=== PATIENT | female | born 1990 | race African-American/Black ===

== ENCOUNTER 2021-12-01 10:55 | Emergency (ER) | payer OTHER ==
[~2021-12-01 10:55] MED LIST: Iopamidol 300 61% 100 ML VIAL FS ONE
[2021-12-01 11:50] LABS: Bilirubin Neg (Negative); Blood, Urine 25 (Negative); Glucose, Urine (Dipstick) Normal (Negative); Ketone, Urine Negative (Negative); Leukocyte 25 (Negative); Nitrite Negative (Negative); Protein, Urine (Dipstick) 30 mg/dl (Neg-Trace); Urobilinogen Normal mg/dL (Less than 2)
[2021-12-01] MEDS ORDERED: Ketorolac Tromethamine 30 MG/ML VIAL ONE (11:53)
[2021-12-01 12:04] LABS: Clarity Slightly Cloudy (Clear); Pregnancy Test - Urine (BHCG) Negative (Negative)
[2021-12-01 12:05] LABS: Pregu Control Background? CLEAR/WHITE (CLR/WHITE); Pregu Control Bar Appear? YES (CONTROL BAR)
[2021-12-01 12:11] LABS: #Basophils 0.1 10x3/uL (0.0-0.2); #Eosinphils 0.2 10x3/uL (0.0-0.5); #Monocytes 0.7 10x3/uL (0.0-1.1); #Neutrophils 4.1 10x3/uL (1.5-8.4); %Basophils 1.7 % (0.0-2.0); %Eosinophils 2.5 % (0.0-6.0); %Lymphocytes 28.5 % (18.0-47.0); %Monocytes 9.5 % (0.0-10.0); %Neutrophils 57.5 % (40.0-75.0); Hemoglobin 9.4 g/dL (12.0-15.5); Mean Corpuscular HGB CONC 30.2 g/dL (32.0-36.0); Mean Corpuscular Hemoglobin 24.2 pg (27.0-33.0); Mean Corpuscular Volume 80.2 fl (81.6-98.3); Mean Platelet Volume 9.2 fl (7.4-10.4); Platelet Count 812 10x3/uL (150-450); RBC Distribution Width 16.9 % (11.5-14.5); Red Blood Cell (RBC) Count 3.88 10x6/uL (3.90-5.03); White Blood Cell (WBC) Count 7.1 10x3/uL (3.5-10.5)
[2021-12-01 12:13] LABS: ALT (SGPT) Less than 6 U/L (8-55); AST (SGOT) 15 U/L (5-34); Albumin 3.9 g/dL (3.5-5.0); Alkaline Phosphatase 57 U/L (40-110); Anion Gap 11 mmol/L (10-20); BUN (Urea Nitrogen) 6 mg/dL (7.0-18.7); Bilirubin, Total 0.4 mg/dL (0.2-1.2); Calc. Creatinine Clearance 0 mL/min (70-130); Calcium 8.9 mg/dL (7.8-10.44); Carbon Dioxide 22 mmol/L (22-29); Chloride 108 mmol/L (98-107); Estimated GFR 107; Globulin 4.2 g/dL (2.4-3.5); Glucose 110 mg/dL (70-105); Lipase 23 U/L (8-78); Potassium 3.6 mmol/L (3.5-5.1); Protein, Total 8.1 g/dL (6.0-8.3); Sodium 137 mmol/L (136-145)
[2021-12-01 12:17] LABS: Bacteria/HPF 2+ HPF (None Seen); RBC/HPF 0-3 HPF (0-3); WBC/HPF 0-3 HPF (0-3)
[2021-12-01 12:18] LABS: Mucous/LPF 1+ LPF (<2+)
[2021-12-01 13:08] LABS: Anisocytosis SLIGHT = 6-15 cells (100X) (0-5/hpf); Hypochromia SLIGHT = 6-15 cells (100X) (0-5/hpf); Microcytosis SLIGHT = 6-15 cells (100X) (0-5/hpf); Platelet Morphology Comment Appears Increased; Polychromasia SLIGHT = 2-3 cells (100X) (0-2/hpf)
[2021-12-01] MEDS ORDERED: Ondansetron PF 4 MG/2 ML Vial ONE (14:17)
[2021-12-01] MEDS ORDERED: Morphine 4 MG/ML VIAL ONE (14:17)
== END 2021-12-01 14:31 | disposition home or self-care (01) ==
LOC: CSHERS 10:55
DX: N39.0 Urinary tract infection, site not specified (principal); I10 Essential (primary) hypertension; Z79.899 Other long term (current) drug therapy
CPT/HCPCS: 74177; 80053; 81003; 81015; 81025; 83690; 85025; 96374; 96375; J1885; J2270; J2405; Q9967

== ENCOUNTER 2021-12-27 09:34 | Emergency (ER) | payer OTHER ==
[2021-12-27 10:34] LABS: Bilirubin Neg (Negative); Blood, Urine 10 (Negative); Clarity Clear (Clear); Glucose, Urine (Dipstick) Normal (Negative); Ketone, Urine Negative (Negative); Leukocyte Negative (Negative); Nitrite Negative (Negative); Protein, Urine (Dipstick) 15 mg/dl (Neg-Trace); Urobilinogen Normal mg/dL (Less than 2)
[2021-12-27 10:39] LABS: Pregnancy Test - Urine (BHCG) Negative (Negative); Pregu Control Background? CLEAR/WHITE (CLR/WHITE); Pregu Control Bar Appear? YES (CONTROL BAR)
[2021-12-27 10:48] LABS: #Basophils 0.1 10x3/uL (0.0-0.2); #Eosinphils 0.1 10x3/uL (0.0-0.5); #Monocytes 0.7 10x3/uL (0.0-1.1); #Neutrophils 4.1 10x3/uL (1.5-8.4); %Basophils 1.3 % (0.0-2.0); %Eosinophils 1.7 % (0.0-6.0); %Lymphocytes 30.1 % (18.0-47.0); %Monocytes 9.4 % (0.0-10.0); %Neutrophils 57.4 % (40.0-75.0); Hemoglobin 9.6 g/dL (12.0-15.5); Mean Corpuscular HGB CONC 29.6 g/dL (32.0-36.0); Mean Corpuscular Hemoglobin 24.2 pg (27.0-33.0); Mean Corpuscular Volume 81.8 fl (81.6-98.3); Mean Platelet Volume 9.6 fl (7.4-10.4); Platelet Count 473 10x3/uL (150-450); RBC Distribution Width 16.5 % (11.5-14.5); Red Blood Cell (RBC) Count 3.96 10x6/uL (3.90-5.03); White Blood Cell (WBC) Count 7.1 10x3/uL (3.5-10.5)
[2021-12-27 10:51] LABS: RBC/HPF 0-3 HPF (0-3); Squamous Epithelial 0-3 HPF (0-3); WBC/HPF 0-3 HPF (0-3)
[2021-12-27 10:52] LABS: Bacteria/HPF Rare-Few HPF (None Seen); Mucous/LPF 1+ LPF (<2+)
[2021-12-27 11:00] LABS: ALT (SGPT) Less than 6 U/L (8-55); Albumin 4.1 g/dL (3.5-5.0); Alkaline Phosphatase 51 U/L (40-110); Anion Gap 13 mmol/L (10-20); BUN (Urea Nitrogen) 10 mg/dL (7.0-18.7); Bilirubin, Total 0.3 mg/dL (0.2-1.2); Calc. Creatinine Clearance 0 mL/min (70-130); Calcium 9.6 mg/dL (7.8-10.44); Carbon Dioxide 24 mmol/L (22-29); Chloride 106 mmol/L (98-107); Estimated GFR 93; Globulin 4.7 g/dL (2.4-3.5); Glucose 113 mg/dL (70-105); Potassium 4.7 mmol/L (3.5-5.1); Protein, Total 8.8 g/dL (6.0-8.3); Sodium 138 mmol/L (136-145)
[2021-12-27 11:04] LABS: AST (SGOT) 28 U/L (5-34)
[2021-12-27 11:28] LABS: Anisocytosis SLIGHT = 6-15 cells (100X) (0-5/hpf); Macrocytosis SLIGHT = 6-15 cells (100X) (0-5/hpf); Ovalocytes SLIGHT = 2-5 cells (100X) (0-1/hpf)
[2021-12-27 11:29] LABS: Platelet Morphology Comment Appears Increased
[2021-12-27] MEDS ORDERED: Ketorolac Tromethamine 30 MG/ML VIAL ONE (11:47)
[2021-12-27] MEDS ORDERED: Fentanyl 100 MCG/2 ML VIAL ONE (15:47)
[2021-12-27] MEDS ORDERED: Lidocaine 1% PF 5 ML VIAL ONE (15:47)
[2021-12-27] MEDS ORDERED: PROPOFOL 20 ML ONE ×2 (15:47→16:36)
[2021-12-27] MEDS ORDERED: Lidocaine 2% PF 5 ML VIAL ONE (15:48)
[2021-12-27] MEDS ORDERED: Ondansetron PF 4 MG/2 ML Vial ONE (15:48)
[2021-12-27] MEDS ORDERED: Dexamethasone 4 mg/ml Vial ONE (15:48)
[2021-12-27] MEDS ORDERED: Rocuronium Bromide 10 MG/ML (10ML VIAL) ONE (15:49)
[2021-12-27] MEDS ORDERED: Bupivacaine PF 0.5% 30 ML VIAL ONE (15:58)
[2021-12-27] MEDS ORDERED: EPINEPHrine 1 MG/ML AMP ONE (15:58)
[2021-12-27] MEDS ORDERED: Glycopyrrolate 0.2 MG/ML 5 ML SYRINGE ONE (16:34)
[2021-12-27] MEDS ORDERED: SUGAMMADEX SODIUM 200 MG/2 ML VIAL ONE (16:44)
[2021-12-27] MEDS ORDERED: HYDROcodone/Acetaminophen 7.5/325 mg Tablet ONE (17:53)
== END 2021-12-27 15:54 | disposition admitted as inpatient to this hospital (09) ==
LOC: CSHERS 09:34
PROC: 0UN Female Reproductive System, Release (ICD-10-PCS; principal; 2021-12-27)
DX: N83.511 Torsion of right ovary and ovarian pedicle (principal); I10 Essential (primary) hypertension
CPT/HCPCS: 36415; 76856; 80053; 81003; 81015; 81025; 85025; 96374; J0171; J1100; J1885; J2001; J2405; J2704; J3010; S0020

== ENCOUNTER 2022-01-04 14:59 | Emergency (ER) | payer OTHER ==
[2022-01-04] MEDS ORDERED: Ketorolac Tromethamine 30 MG/ML VIAL ONE (16:46)
[2022-01-04] MEDS ORDERED: Ondansetron PF 4 MG/2 ML Vial ONE (16:46)
[2022-01-04 17:21] LABS: Bilirubin Neg (Negative); Blood, Urine 250 (Negative); Clarity Slightly Cloudy (Clear); Glucose, Urine (Dipstick) Normal (Negative); Ketone, Urine Negative (Negative); Leukocyte Negative (Negative); Nitrite Negative (Negative); Pregnancy Test - Urine (BHCG) Negative (Negative); Pregu Control Background? CLEAR/WHITE (CLR/WHITE); Pregu Control Bar Appear? YES (CONTROL BAR); Protein, Urine (Dipstick) 30 mg/dl (Neg-Trace)
[2022-01-04 17:27] LABS: #Basophils 0.1 10x3/uL (0.0-0.2); #Eosinphils 0.2 10x3/uL (0.0-0.5); #Monocytes 0.6 10x3/uL (0.0-1.1); #Neutrophils 2.5 10x3/uL (1.5-8.4); %Basophils 1.4 % (0.0-2.0); %Eosinophils 4.1 % (0.0-6.0); %Lymphocytes 39.8 % (18.0-47.0); %Monocytes 9.9 % (0.0-10.0); %Neutrophils 44.6 % (40.0-75.0); Hemoglobin 9.3 g/dL (12.0-15.5); Mean Corpuscular HGB CONC 29.8 g/dL (32.0-36.0); Mean Corpuscular Hemoglobin 23.8 pg (27.0-33.0); Mean Corpuscular Volume 79.8 fl (81.6-98.3); Mean Platelet Volume 9.4 fl (7.4-10.4); Platelet Count 609 10x3/uL (150-450); RBC Distribution Width 15.7 % (11.5-14.5); Red Blood Cell (RBC) Count 3.91 10x6/uL (3.90-5.03); White Blood Cell (WBC) Count 5.6 10x3/uL (3.5-10.5)
[2022-01-04 17:29] LABS: ALT (SGPT) Less than 6 U/L (8-55); AST (SGOT) 16 U/L (5-34); Albumin 3.7 g/dL (3.5-5.0); Alkaline Phosphatase 59 U/L (40-110); Anion Gap 12 mmol/L (10-20); BUN (Urea Nitrogen) 6 mg/dL (7.0-18.7); Bilirubin, Total 0.3 mg/dL (0.2-1.2); Calc. Creatinine Clearance 0 mL/min (70-130); Carbon Dioxide 25 mmol/L (22-29); Chloride 105 mmol/L (98-107); Estimated GFR 99; Globulin 4.3 g/dL (2.4-3.5); Glucose 90 mg/dL (70-105); Potassium 3.9 mmol/L (3.5-5.1); Sodium 138 mmol/L (136-145)
[2022-01-04 17:34] LABS: Bacteria/HPF Rare-Few HPF (None Seen); RBC/HPF 21-50 HPF (0-3); Squamous Epithelial 0-3 HPF (0-3); WBC/HPF 0-3 HPF (0-3)
[2022-01-04 18:14] LABS: Anisocytosis SLIGHT = 6-15 cells (100X) (0-5/hpf); Hypochromia SLIGHT = 6-15 cells (100X) (0-5/hpf); Microcytosis SLIGHT = 6-15 cells (100X) (0-5/hpf); Ovalocytes SLIGHT = 2-5 cells (100X) (0-1/hpf); Platelet Morphology Comment Appears Increased
[2022-01-04] MEDS ORDERED: HYDROcodone/Acetaminophen 5/325 mg Tablet ONE (19:33)
== END 2022-01-04 19:42 | disposition home or self-care (01) ==
LOC: CSHERS 14:59
DX: N83.01 Follicular cyst of right ovary (principal); N83.02 Follicular cyst of left ovary; G89.18 Other acute postprocedural pain; I10 Essential (primary) hypertension
CPT/HCPCS: 74177; 80053; 81003; 81015; 81025; 85025; 96374; 96375; J1885; J2405; Q9967

== ENCOUNTER 2022-03-30 09:55 | Emergency (ER) | payer OTHER ==
[2022-03-30 10:57] LABS: #Basophils 0.1 10x3/uL (0.0-0.2); #Eosinphils 0.2 10x3/uL (0.0-0.5); #Monocytes 0.7 10x3/uL (0.0-1.1); #Neutrophils 2.2 10x3/uL (1.5-8.4); %Basophils 1.9 % (0.0-2.0); %Eosinophils 3.2 % (0.0-6.0); %Lymphocytes 41.4 % (18.0-47.0); %Monocytes 12.2 % (0.0-10.0); %Neutrophils 41.1 % (40.0-75.0); Mean Corpuscular HGB CONC 29.4 g/dL (32.0-36.0); Mean Corpuscular Hemoglobin 23.1 pg (27.0-33.0); Mean Corpuscular Volume 78.7 fl (81.6-98.3); Mean Platelet Volume 8.8 fl (7.4-10.4); Platelet Count 405 10x3/uL (150-450); RBC Distribution Width 14.8 % (11.5-14.5); Red Blood Cell (RBC) Count 3.89 10x6/uL (3.90-5.03); White Blood Cell (WBC) Count 5.3 10x3/uL (3.5-10.5)
[2022-03-30 11:01] LABS: ALT (SGPT) 7 U/L (8-55); AST (SGOT) 21 U/L (5-34); Albumin 3.9 g/dL (3.5-5.0); Alkaline Phosphatase 51 U/L (40-110); Anion Gap 12 mmol/L (10-20); BUN (Urea Nitrogen) 7 mg/dL (7.0-18.7); Bilirubin, Total 0.2 mg/dL (0.2-1.2); Calc. Creatinine Clearance 0 mL/min (70-130); Calcium 9.1 mg/dL (7.8-10.44); Carbon Dioxide 26 mmol/L (22-29); Chloride 104 mmol/L (98-107); Estimated GFR 82; Globulin 3.9 g/dL (2.4-3.5); Glucose 97 mg/dL (70-105); Lipase 45 U/L (8-78); Potassium 3.2 mmol/L (3.5-5.1); Protein, Total 7.8 g/dL (6.0-8.3); Sodium 139 mmol/L (136-145)
[2022-03-30 11:12] LABS: Bilirubin Neg (Negative); Blood, Urine 10 (Negative); Clarity Slightly Cloudy (Clear); Glucose, Urine (Dipstick) Normal (Negative); Ketone, Urine Negative (Negative); Leukocyte Negative (Negative); Nitrite Negative (Negative); Protein, Urine (Dipstick) Negative (Neg-Trace); Urobilinogen Normal mg/dL (Less than 2)
[2022-03-30 11:17] LABS: Pregnancy Test - Urine (BHCG) Negative (Negative); Pregu Control Background? CLEAR/WHITE (CLR/WHITE); Pregu Control Bar Appear? YES (CONTROL BAR)
[2022-03-30] MEDS ORDERED: Iopamidol 300 61% 100 ML VIAL FS ONE (11:30)
[2022-03-30 11:48] LABS: Bacteria/HPF Rare-Few HPF (None Seen); RBC/HPF 0-3 HPF (0-3); Squamous Epithelial 0-3 HPF (0-3); WBC/HPF 0-3 HPF (0-3)
[2022-03-30] MEDS ORDERED: Ondansetron PF 4 MG/2 ML Vial ONE ×3 (12:07→15:26)
[2022-03-30] MEDS ORDERED: Ketorolac Tromethamine 30 MG/ML VIAL ONE (12:07)
[2022-03-30] MEDS ORDERED: Morphine 4 MG/ML VIAL ONE ×2 (13:59→15:26)
== END 2022-03-30 15:53 | disposition home or self-care (01) ==
LOC: CSHERS 09:55
DX: R10.30 Lower abdominal pain, unspecified (principal); I10 Essential (primary) hypertension
CPT/HCPCS: 74177; 76856; 80053; 81003; 81015; 81025; 83605; 83690; 85025; 93976; 96361; 96374; 96375; 96376; J1885; J2270; J2405; Q9967

== ENCOUNTER 2022-05-01 14:49 | Emergency (ER) | payer OTHER ==
[2022-05-01] MEDS ORDERED: Ketorolac Tromethamine 30 MG/ML VIAL ONE (15:55)
[2022-05-01] MEDS ORDERED: Ondansetron PF 4 MG/2 ML Vial ONE (15:56)
[2022-05-01 16:22] LABS: Bilirubin Neg (Negative); Blood, Urine 10 (Negative); Clarity Clear (Clear); Glucose, Urine (Dipstick) Normal (Negative); Ketone, Urine Negative (Negative); Leukocyte Negative (Negative); Nitrite Negative (Negative); Protein, Urine (Dipstick) Negative (Neg-Trace); Specific Gravity, Urine 1.005 (1.005-1.030); Urobilinogen Normal mg/dL (Less than 2)
[2022-05-01 16:26] LABS: #Basophils 0.1 10x3/uL (0.0-0.2); #Eosinphils 0.1 10x3/uL (0.0-0.5); #Monocytes 0.6 10x3/uL (0.0-1.1); #Neutrophils 3.8 10x3/uL (1.5-8.4); %Basophils 1.6 % (0.0-2.0); %Eosinophils 2.2 % (0.0-6.0); %Lymphocytes 25.5 % (18.0-47.0); %Monocytes 9.6 % (0.0-10.0); %Neutrophils 60.6 % (40.0-75.0); Hemoglobin 9.1 g/dL (12.0-15.5); Mean Corpuscular HGB CONC 28.4 g/dL (32.0-36.0); Mean Corpuscular Hemoglobin 22.6 pg (27.0-33.0); Mean Corpuscular Volume 79.6 fl (81.6-98.3); Platelet Count 284 10x3/uL (150-450); RBC Distribution Width 15.2 % (11.5-14.5); Red Blood Cell (RBC) Count 4.02 10x6/uL (3.90-5.03); White Blood Cell (WBC) Count 6.2 10x3/uL (3.5-10.5)
[2022-05-01 16:38] LABS: Bacteria/HPF None Seen HPF (None Seen); RBC/HPF 0-3 HPF (0-3); Squamous Epithelial 0-3 HPF (0-3); WBC/HPF None Seen HPF (0-3)
[2022-05-01 16:39] LABS: ALT (SGPT) 7 U/L (8-55); AST (SGOT) 17 U/L (5-34); Albumin 4.1 g/dL (3.5-5.0); Alkaline Phosphatase 63 U/L (40-110); Anion Gap 12 mmol/L (10-20); BUN (Urea Nitrogen) 4 mg/dL (7.0-18.7); Bilirubin, Total 0.2 mg/dL (0.2-1.2); Calc. Creatinine Clearance 0 mL/min (70-130); Calcium 9.3 mg/dL (7.8-10.44); Carbon Dioxide 24 mmol/L (22-29); Chloride 108 mmol/L (98-107); Estimated GFR 98; Globulin 4.3 g/dL (2.4-3.5); Glucose 97 mg/dL (70-105); Potassium 3.7 mmol/L (3.5-5.1); Protein, Total 8.4 g/dL (6.0-8.3); Sodium 140 mmol/L (136-145)
== END 2022-05-01 17:03 | disposition home or self-care (01) ==
LOC: CSHERS 14:49
DX: R10.9 Unspecified abdominal pain (principal); I10 Essential (primary) hypertension
CPT/HCPCS: 74176; 80053; 81003; 81015; 85025; 96374; 96375; J1885; J2405

== ENCOUNTER 2022-07-15 15:51 | Emergency (ER) | payer OTHER ==
[2022-07-15] MEDS ORDERED: Ketorolac Tromethamine 30 MG/ML VIAL ONE (17:08)
[2022-07-15] MEDS ORDERED: Ondansetron PF 4 MG/2 ML Vial ONE (17:08)
[2022-07-15 17:22] LABS: #Basophils 0.1 10x3/uL (0.0-0.2); #Eosinphils 0.1 10x3/uL (0.0-0.5); #Monocytes 0.9 10x3/uL (0.0-1.1); #Neutrophils 3.1 10x3/uL (1.5-8.4); %Basophils 1.6 % (0.0-2.0); %Eosinophils 1.8 % (0.0-6.0); %Lymphocytes 36.6 % (18.0-47.0); %Monocytes 13.7 % (0.0-10.0); Hemoglobin 8.5 g/dL (12.0-15.5); Mean Corpuscular HGB CONC 28.9 g/dL (32.0-36.0); Mean Corpuscular Hemoglobin 21.7 pg (27.0-33.0); Mean Corpuscular Volume 75.2 fl (81.6-98.3); Mean Platelet Volume 9.1 fl (7.4-10.4); Platelet Count 810 10x3/uL (150-450); RBC Distribution Width 15.9 % (11.5-14.5); Red Blood Cell (RBC) Count 3.91 10x6/uL (3.90-5.03); White Blood Cell (WBC) Count 6.7 10x3/uL (3.5-10.5)
[2022-07-15 17:29] LABS: BHCG - Serum Negative (NEGATIVE); Pregs Control Background? CLEAR/WHITE (CLR/WHITE); Pregs Control Bar Appear? YES (CONTROL BAR)
[2022-07-15 17:34] LABS: Bilirubin Neg (Negative); Blood, Urine 25 (Negative); Clarity Clear (Clear); Glucose, Urine (Dipstick) Normal (Negative); Ketone, Urine Negative (Negative); Leukocyte Negative (Negative); Nitrite Negative (Negative); Protein, Urine (Dipstick) 30 mg/dl (Neg-Trace); Urobilinogen Normal mg/dL (Less than 2)
[2022-07-15 17:36] LABS: ALT (SGPT) 6 U/L (8-55); AST (SGOT) 20 U/L (5-34); Albumin 4.2 g/dL (3.5-5.0); Alkaline Phosphatase 51 U/L (40-110); Anion Gap 13 mmol/L (10-20); BUN (Urea Nitrogen) 7 mg/dL (7.0-18.7); Bilirubin, Total 0.4 mg/dL (0.2-1.2); Calc. Creatinine Clearance 0 mL/min (70-130); Calcium 9.3 mg/dL (7.8-10.44); Carbon Dioxide 27 mmol/L (22-29); Chloride 98 mmol/L (98-107); Estimated GFR 82; Globulin 4.2 g/dL (2.4-3.5); Glucose 89 mg/dL (70-105); Lipase 23 U/L (8-78); Potassium 3.1 mmol/L (3.5-5.1); Protein, Total 8.4 g/dL (6.0-8.3); Sodium 135 mmol/L (136-145)
[2022-07-15 18:05] LABS: CAUTI Indications for Culture Pelvic or flank pain
[2022-07-15 18:06] LABS: Bacteria/HPF 2+ HPF (None Seen); Renal Epithelial 0-3 HPF (None Seen); Squamous Epithelial 0-3 HPF (0-3); Urine Culture Reflex No No
[2022-07-15] MEDS ORDERED: Morphine 4 MG/ML VIAL ONE (19:23)
== END 2022-07-15 20:00 | disposition home or self-care (01) ==
LOC: CSHERS 15:51
DX: N39.0 Urinary tract infection, site not specified (principal); I10 Essential (primary) hypertension
CPT/HCPCS: 36415; 76856; 80053; 81001; 83690; 84703; 85025; 93976; 96374; 96375; J1885; J2270; J2405

== ENCOUNTER 2022-09-30 13:22 | Emergency (ER) | payer OTHER ==
[2022-09-30 14:44] LABS: Bilirubin Neg (Negative); Blood, Urine 150 (Negative); Clarity Clear (Clear); Glucose, Urine (Dipstick) Normal (Negative); Ketone, Urine Negative (Negative); Leukocyte Negative (Negative); Nitrite Negative (Negative); Protein, Urine (Dipstick) 30 mg/dl (Neg-Trace); Urobilinogen Normal mg/dL (Less than 2)
[2022-09-30 15:00] LABS: #Basophils 0.1 10x3/uL (0.0-0.2); #Eosinphils 0.1 10x3/uL (0.0-0.5); #Neutrophils 3.2 10x3/uL (1.5-8.4); %Eosinophils 1.6 % (0.0-6.0); %Lymphocytes 36.6 % (18.0-47.0); %Monocytes 14.3 % (0.0-10.0); %Neutrophils 45.4 % (40.0-75.0); Hematocrit 32.1 % (34.9-44.5); Hemoglobin 9.2 g/dL (12.0-15.5); Mean Corpuscular HGB CONC 28.7 g/dL (32.0-36.0); Mean Corpuscular Volume 73.1 fl (81.6-98.3); Mean Platelet Volume 9.1 fl (7.4-10.4); Platelet Count 300 10x3/uL (150-450); RBC Distribution Width 15.5 % (11.5-14.5); Red Blood Cell (RBC) Count 4.39 10x6/uL (3.90-5.03); White Blood Cell (WBC) Count 6.9 10x3/uL (3.5-10.5)
[2022-09-30 15:17] LABS: ALT (SGPT) 7 U/L (8-55); AST (SGOT) 20 U/L (5-34); Albumin 4.3 g/dL (3.5-5.0); Alkaline Phosphatase 64 U/L (40-110); Anion Gap 14 mmol/L (10-20); BUN (Urea Nitrogen) 7 mg/dL (7.0-18.7); Bilirubin, Total 0.4 mg/dL (0.2-1.2); Calc. Creatinine Clearance 0 mL/min (70-130); Calcium 9.5 mg/dL (7.8-10.44); Carbon Dioxide 23 mmol/L (22-29); Chloride 101 mmol/L (98-107); Estimated GFR 76; Globulin 4.9 g/dL (2.4-3.5); Glucose 94 mg/dL (70-105); Potassium 3.4 mmol/L (3.5-5.1); Protein, Total 9.2 g/dL (6.0-8.3); Sodium 135 mmol/L (136-145)
[2022-09-30] MEDS ORDERED: Acetaminophen 500 MG TAB ONE (15:20)
[2022-09-30] MEDS ORDERED: Ondansetron PF 4 MG/2 ML Vial ONE (15:20)
[2022-09-30 15:21] LABS: BHCG - Serum Negative (NEGATIVE); Pregs Control Background? CLEAR/WHITE (CLR/WHITE); Pregs Control Bar Appear? YES (CONTROL BAR)
[2022-09-30] MEDS ORDERED: Ketorolac Tromethamine 30 MG/ML VIAL ONE (15:29)
[2022-09-30 15:51] LABS: Bacteria/HPF 1+ HPF (None Seen); CAUTI Indications for Culture Pelvic or flank pain; RBC/HPF 21-50 HPF (0-3); Squamous Epithelial 0-3 HPF (0-3); Transitional Epithelial 0-3 HPF (None Seen); WBC/HPF 0-3 HPF (0-3)
[2022-09-30 15:52] LABS: Mucous/LPF 1+ LPF (<2+)
[2022-09-30 15:53] LABS: Urine Culture Reflex No No
== END 2022-09-30 17:21 | disposition home or self-care (01) ==
LOC: CSHERS 13:22
DX: N83.01 Follicular cyst of right ovary (principal); R31.9 Hematuria, unspecified; I10 Essential (primary) hypertension; Z79.899 Other long term (current) drug therapy
CPT/HCPCS: 74176; 76856; 80053; 81001; 84703; 85025; 93976; 96374; 96375; J1885; J2405

== ENCOUNTER 2022-10-12 09:43 | Day surgery (SDC) | payer OTHER ==
[2022-10-11 14:00] VITALS: BMI 32.3
[2022-10-11 14:31] LABS: Hematocrit 28.7 % (34.9-44.5); Mean Corpuscular HGB CONC 27.9 g/dL (32.0-36.0); Mean Corpuscular Hemoglobin 21.1 pg (27.0-33.0); Mean Corpuscular Volume 75.5 fl (81.6-98.3); Mean Platelet Volume 9.8 fl (7.4-10.4); Platelet Count 708 10x3/uL (150-450); RBC Distribution Width 17.1 % (11.5-14.5); White Blood Cell (WBC) Count 6.5 10x3/uL (3.5-10.5)
[2022-10-11 14:48] LABS: BHCG - Serum Negative (NEGATIVE); Pregs Control Background? CLEAR/WHITE (CLR/WHITE); Pregs Control Bar Appear? YES (CONTROL BAR)
[2022-10-12] MEDS ORDERED: Vasopressin 20 UNITS/ML VIAL ONE (11:43)
[2022-10-12] MEDS ORDERED: Ondansetron PF 4 MG/2 ML Vial ONE (11:44)
[2022-10-12] MEDS ORDERED: Midazolam HCl 2 mg/2 ml Vial ONE (11:44)
[2022-10-12] MEDS ORDERED: Ketorolac Tromethamine 30 MG/ML VIAL ONE (11:44)
[2022-10-12] MEDS ORDERED: PROPOFOL 20 ML ONE ×2 (11:44→12:16)
[2022-10-12] MEDS ORDERED: Dexamethasone 20 MG/5 ML VIAL ONE (11:44)
[2022-10-12] MEDS ORDERED: fentaNYL 50 mcg/mL 1 mL Vial ONE ×2 (11:45→12:53)
[2022-10-12] MEDS ORDERED: CEFAZOLIN 2 GM VIAL ONE (11:52)
[2022-10-12] MEDS ORDERED: Meperidine HCl/PF 25 MG/ML VIAL ONE (12:59)
== END 2022-10-12 14:20 | disposition home or self-care (01) ==
LOC: CSHSDC 09:43
PROVIDERS: ATTEND Obstetrics & Gynecology
PROC: 0UB98ZZ Excision of Uterus, Via Natural or Artificial Opening Endoscopic (ICD-10-PCS; principal; 2022-10-12)
DX: N84.0 Polyp of corpus uteri (principal); N92.0 Excessive and frequent menstruation with regular cycle; N94.6 Dysmenorrhea, unspecified; D64.9 Anemia, unspecified; I10 Essential (primary) hypertension; Z88.6 Allergy status to analgesic agent; Z79.899 Other long term (current) drug therapy
CPT/HCPCS: 36415; 84703; 85027; 86850; 86900; 86901; 88305; J1100; J1885; J2175; J2250; J2405; J2704; J3010

== ENCOUNTER 2022-10-18 12:46 | Emergency (ER) | payer OTHER ==
[~2022-10-18 12:46] MED LIST changes: -Iopamidol 300 61% 100 ML VIAL FS ONE; +Iopamidol 370 76% 100 ML VIAL ONE
[2022-10-18] MEDS ORDERED: Ondansetron PF 4 MG/2 ML Vial ONE (15:40)
[2022-10-18] MEDS ORDERED: Ketorolac Tromethamine 30 MG/ML VIAL ONE (15:41)
[2022-10-18 16:22] LABS: #Basophils 0.1 10x3/uL (0.0-0.2); #Eosinphils 0.1 10x3/uL (0.0-0.5); #Monocytes 0.8 10x3/uL (0.0-1.1); #Neutrophils 5.7 10x3/uL (1.5-8.4); %Basophils 0.7 % (0.0-2.0); %Eosinophils 0.8 % (0.0-6.0); %Lymphocytes 21.8 % (18.0-47.0); %Monocytes 9.7 % (0.0-10.0); %Neutrophils 66.8 % (40.0-75.0); Hematocrit 29.6 % (34.9-44.5); Hemoglobin 8.5 g/dL (12.0-15.5); Mean Corpuscular HGB CONC 28.7 g/dL (32.0-36.0); Mean Corpuscular Hemoglobin 21.6 pg (27.0-33.0); Mean Corpuscular Volume 75.3 fl (81.6-98.3); Mean Platelet Volume 9.6 fl (7.4-10.4); Platelet Count 953 10x3/uL (150-450); RBC Distribution Width 16.7 % (11.5-14.5); Red Blood Cell (RBC) Count 3.93 10x6/uL (3.90-5.03); White Blood Cell (WBC) Count 8.5 10x3/uL (3.5-10.5)
[2022-10-18 16:32] LABS: SARS-CoV-2 NAA Rapid Test Not Detected (NotDetected)
[2022-10-18 16:45] LABS: ALT (SGPT) 7 U/L (8-55); AST (SGOT) 21 U/L (5-34); Albumin 3.9 g/dL (3.5-5.0); Alkaline Phosphatase 54 U/L (40-110); Anion Gap 13 mmol/L (10-20); BUN (Urea Nitrogen) 8 mg/dL (7.0-18.7); Bilirubin, Total 0.2 mg/dL (0.2-1.2); Calc. Creatinine Clearance 0 mL/min (70-130); Calcium 8.9 mg/dL (7.8-10.44); Carbon Dioxide 24 mmol/L (22-29); Chloride 104 mmol/L (98-107); Estimated GFR 83; Globulin 3.9 g/dL (2.4-3.5); Glucose 114 mg/dL (70-105); Potassium 3.5 mmol/L (3.5-5.1); Protein, Total 7.8 g/dL (6.0-8.3); Sodium 137 mmol/L (136-145)
[2022-10-18 16:52] LABS: Troponin I Less than 0.010 ng/mL (< 0.028)
[2022-10-18 16:59] LABS: Anisocytosis SLIGHT = 6-15 cells (100X) (0-5/hpf)
[2022-10-18 17:00] LABS: Hypochromia MODERATE=16-30 cells (100X) (0-5/hpf); Microcytosis SLIGHT = 6-15 cells (100X) (0-5/hpf); Platelet Adequacy Comment Appears Increased
[2022-10-18 17:09] LABS: BHCG - Serum Negative (NEGATIVE); Pregs Control Background? CLEAR/WHITE (CLR/WHITE); Pregs Control Bar Appear? YES (CONTROL BAR)
[2022-10-18 18:46] LABS: Bilirubin 1+ (Negative); Blood, Urine 250 (Negative); Clarity Clear (Clear); Glucose, Urine (Dipstick) Normal (Negative); Ketone, Urine 5 mg/dL (Negative); Leukocyte 25 (Negative); Nitrite Negative (Negative); Protein, Urine (Dipstick) 30 mg/dl (Neg-Trace); Specific Gravity, Urine 1.015 (1.005-1.030); Urobilinogen Normal mg/dL (Less than 2)
[2022-10-18 18:59] LABS: CAUTI Indications for Culture Alt mental st,lethar; RBC/HPF 21-50 HPF (0-3)
[2022-10-18 19:00] LABS: Bacteria/HPF 1+ HPF (None Seen); Mucous/LPF 2+ LPF (<2+); Transitional Epithelial 0-3 HPF (None Seen)
[2022-10-18 19:01] LABS: Urine Culture Reflex No No
[2022-10-18] MEDS ORDERED: fentaNYL 50 mcg/mL 1 mL Vial ONE (20:03)
== END 2022-10-18 21:38 | disposition home or self-care (01) ==
LOC: CSHERS 12:46
DX: R06.02 Shortness of breath (principal); R74.8 Abnormal levels of other serum enzymes; I10 Essential (primary) hypertension; Z98.890 Other specified postprocedural states; Z20.822 Contact with and (suspected) exposure to COVID-19
CPT/HCPCS: 71275; 74177; 80053; 81001; 83605; 83690; 84484; 84703; 85025; 93005; 96361; 96374; 96375; J1885; J2405; J3010; Q9967; U0002

== ENCOUNTER 2022-10-25 03:49 | Emergency (ER) | payer OTHER ==
[2022-10-25] MEDS ORDERED: Mag-Al Plus 1200 MG/1200 MG/120 MG/30 ML UDCUP ONE (04:15)
[2022-10-25 06:43] LABS: Troponin I Less than 0.010 ng/mL (< 0.028)
== END 2022-10-25 06:49 | disposition home or self-care (01) ==
LOC: CSHERS 03:49
DX: K20.90 Esophagitis, unspecified without bleeding (principal); I10 Essential (primary) hypertension; D50.9 Iron deficiency anemia, unspecified; Z79.899 Other long term (current) drug therapy
CPT/HCPCS: 36415; 71046; 84484; 93005

== ENCOUNTER 2023-02-03 17:30 | Emergency (ER) | payer OTHER ==
[2023-02-03] MEDS ORDERED: Ketorolac Tromethamine 30 MG (1 mL) VIAL ONE (20:03)
[2023-02-03] MEDS ORDERED: Ondansetron PF 4 MG/2 ML Vial ONE (20:03)
[2023-02-03 20:24] LABS: Bilirubin Neg (Negative); Blood, Urine 50 (Negative); Clarity Slightly Cloudy (Clear); Glucose, Urine (Dipstick) Normal (Negative); Ketone, Urine 5 mg/dL (Negative); Leukocyte 25 (Negative); Nitrite Negative (Negative); Protein, Urine (Dipstick) 30 mg/dl (Neg-Trace); Specific Gravity, Urine 1.025 (1.005-1.030); Urobilinogen Normal mg/dL (Less than 2)
[2023-02-03 20:29] LABS: #Basophils 0.1 10x3/uL (0.0-0.2); #Eosinphils 0.1 10x3/uL (0.0-0.5); #Neutrophils 3.8 10x3/uL (1.5-8.4); %Basophils 1.5 % (0.0-2.0); %Eosinophils 0.6 % (0.0-6.0); %Lymphocytes 38.6 % (18.0-47.0); %Monocytes 12.6 % (0.0-10.0); %Neutrophils 46.5 % (40.0-75.0); Hemoglobin 8.3 g/dL (12.0-15.5); Mean Corpuscular HGB CONC 28.6 g/dL (32.0-36.0); Mean Corpuscular Hemoglobin 21.3 pg (27.0-33.0); Mean Corpuscular Volume 74.6 fl (81.6-98.3); Mean Platelet Volume 8.7 fl (7.4-10.4); Platelet Count 862 10x3/uL (150-450); RBC Distribution Width 16.3 % (11.5-14.5); Red Blood Cell (RBC) Count 3.89 10x6/uL (3.90-5.03); White Blood Cell (WBC) Count 8.1 10x3/uL (3.5-10.5)
[2023-02-03 20:30] LABS: Pregnancy Test - Urine (BHCG) Negative (Negative); Pregu Control Background? CLEAR/WHITE (CLR/WHITE); Pregu Control Bar Appear? YES (CONTROL BAR); Specific Gravity 1.025 (1.002-1.036)
[2023-02-03 20:36] LABS: ALT (SGPT) Less than 7 U/L (8-55); AST (SGOT) 16 U/L (5-34); Albumin 4.1 g/dL (3.5-5.0); Alkaline Phosphatase 50 U/L (40-110); Anion Gap 13 mmol/L (10-20); BUN (Urea Nitrogen) 5 mg/dL (7.0-18.7); Bilirubin, Total 0.4 mg/dL (0.2-1.2); Calc. Creatinine Clearance 0 mL/min (70-130); Calcium 9.1 mg/dL (7.8-10.44); Carbon Dioxide 27 mmol/L (22-29); Chloride 103 mmol/L (98-107); Estimated GFR 95; Globulin 4.2 g/dL (2.4-3.5); Glucose 92 mg/dL (70-105); Protein, Total 8.3 g/dL (6.0-8.3); Sodium 140 mmol/L (136-145)
[2023-02-03 20:40] LABS: Bacteria/HPF 4+ HPF (None Seen); CAUTI Indications for Culture Pelvic or flank pain; RBC/HPF 0-3 HPF (0-3); Squamous Epithelial 0-3 HPF (0-3)
[2023-02-03 20:41] LABS: Urine Culture Reflex No No
[2023-02-03] MEDS ORDERED: cefTRIAXone (ROCEPHIN) 2 GM VIAL ONE (21:12)
[2023-02-03] MEDS ORDERED: HYDROcodone/Acetaminophen 5/325 mg Tablet ONE (22:24)
== END 2023-02-03 22:35 | disposition home or self-care (01) ==
LOC: CSHERS 17:30
DX: N10 Acute pyelonephritis (principal); I10 Essential (primary) hypertension
CPT/HCPCS: 74176; 80053; 81001; 81025; 85025; 87077; 87086; 87186; 96374; 96375; J0696; J1885; J2405

== ENCOUNTER 2024-01-08 15:37 | Emergency (ER) | payer OTHER ==
[2024-01-08] MEDS ORDERED: Ibuprofen 800 MG TAB ONE (19:00)
[2024-01-08] MEDS ORDERED: Dexamethasone 20 MG/5 ML VIAL ONE (19:00)
== END 2024-01-08 20:42 | disposition home or self-care (01) ==
LOC: CSHERS 15:37
DX: J18.9 Pneumonia, unspecified organism (principal); I10 Essential (primary) hypertension
CPT/HCPCS: 71045; 87428; J1100